=== PATIENT | female | born 1945 | race Caucasian/White ===

== ENCOUNTER 2022-04-04 13:49 | Emergency (ER) | payer MEDICARE, OTHER ==
[~2022-04-04] VITALS: Ht 167.6 cm; Wt 79.5 kg
[~2022-04-04 13:49] MED LIST: ASPI325T6 PO; ATIVAN 1MG T1 MG/TAB PO; BENTYL 10MG10 MG/CAP PO; CLARITIN 1010 MG/TAB PO; COZAAR 50MG50 MG/TAB PO; IBU800 M1 PO; LEVOXYL0.1 MG PO; MEDROL 4MG DOSPA4 MG PO; NASACORT AQ N16.5 GM NS; NEXIUM I.V. 40M40 MG PO; NORCO 325 MG-7.1 TAB PO; PRINZIDE 12.5 M1 TA1 PO; PRINZIDE 12.5 M1 TAB PO; PROZAC 20MG20 MG PO; RT ADVAIR 128 DISKUS IH; RT ALBUTER2.5 MG/0.5 IH; SINGULAIR 110 MG/TAB PO; XARELTO10 MG PO; ZYRTEC 10MG10 MG PO
[2022-04-04 14:01] VITALS: TEMP 97.9
[2022-04-04] MEDS ORDERED: VOLTAREN GEL 1%1 TU TP ×3 (15:26→17:13)
[2022-04-04] MEDS ORDERED: NORCO 325 MG-51 TAB PO ×3 (15:26→17:13)
[2022-04-04 15:37] VITALS: BP 129/66; PULSE 80
== END 2022-04-04 15:37 | disposition home or self-care (01) ==
LOC: COL.ER 13:49
DX: M25.561 Pain in right knee (principal); Z28.310 Unvaccinated for COVID-19